=== PATIENT | female | born 1975 | race Asian ===

== ENCOUNTER 2024-01-18 14:29 | Outpatient (AMB) | payer OTHER, SELFPAY ==
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
[2024-01-18 14:34] VITALS: BP 132/59; O2SAT 98; BMI 19.3
== END 2024-01-18 15:18 | disposition home or self-care (01) ==
LOC: HO.PMC 14:29
PROVIDERS: PCP Internal Medicine; Visit Provider Nurse Practitioner Family
DX: M25.512 Pain in left shoulder (principal); M54.2 Cervicalgia; G25.0 Essential tremor; M54.12 Radiculopathy, cervical region; F32.A Depression, unspecified; F41.9 Anxiety disorder, unspecified; F43.10 Post-traumatic stress disorder, unspecified
CPT/HCPCS: 99204

== ENCOUNTER 2024-01-18 14:29 | Outpatient (REF) | payer OTHER, SELFPAY ==
--- NOTE | ~2024-01-18 | XR_ITS ---
EXAMINATION: XR CERVICAL SPINE CLINICAL INFORMATION: Cervicalgia. COMPARISON: None available. TECHNIQUE: 6 views of the cervical spine, inclusive of flexion and extension views, were obtained. FINDINGS: No evidence of acute compression deformity or subluxation. The atlantoaxial and atlantooccipital articulations are maintained. No evidence of instability on the flexion and extension views. Moderate multilevel intervertebral disc height loss and facet/uncal hypertrophy leading to various degrees of neural foraminal encroachment more prominent from C4 through C6. Anteroinferior marginal osteophytes. Ossification of the nuchal ligament. No prevertebral soft tissue thickening. Visualized lung apices are clear. XR/XR cervical spine min 6V IMPRESSION: 1. No acute fractures or malalignment. 2. Moderate cervical spondylosis. Electronically signed by: Samia Bustos MD 01/18/2024 08:07 PM [facility]
--- NOTE | ~2024-01-18 | XR_ITS ---
EXAMINATION: XR SHOULDER, RIGHT CLINICAL INFORMATION: Pain. COMPARISON: None available. TECHNIQUE: Four views of the right shoulder. FINDINGS: No acute fracture or dislocation. Joint spaces are maintained. No significant soft tissue abnormality. Visualized right hemithorax is within normal limits. XR/XR shoulder RT min 2V IMPRESSION: No acute fracture or dislocation. Electronically signed by: Samia Bustos MD 01/18/2024 08:04 PM [facility]
== END 2024-01-18 14:30 | disposition home or self-care (01) ==
LOC: HO.XRAY 14:29
PROVIDERS: PCP Internal Medicine; Visit Provider Nurse Practitioner Family
DX: M54.2 Cervicalgia (principal); G25.0 Essential tremor; M54.12 Radiculopathy, cervical region; M25.512 Pain in left shoulder; F32.A Depression, unspecified; F41.9 Anxiety disorder, unspecified; F43.10 Post-traumatic stress disorder, unspecified
CPT/HCPCS: 72052; 73030; 96127

== ENCOUNTER 2024-02-05 13:50 | Outpatient (AMB) | payer OTHER, SELFPAY ==
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
[2024-02-05 13:51] VITALS: BMI 19.1
== END 2024-02-05 14:00 | disposition home or self-care (01) ==
LOC: HO.PMC 13:50
PROVIDERS: PCP Internal Medicine; Visit Provider Nurse Practitioner Family
DX: M25.512 Pain in left shoulder (principal); M54.2 Cervicalgia; M54.12 Radiculopathy, cervical region; M47.812 Spondylosis without myelopathy or radiculopathy, cervical region
CPT/HCPCS: 99214